=== PATIENT | female | born 1995 | race Caucasian/White ===

== ENCOUNTER → 2016-05-26 | Outpatient (CLI) | payer OTHER ==
[~2016-05-26] MED LIST: BUPR8SUB19 SL; CEPH500C2 PO; GABA1CAP5 PO; ONDA4TAB46 PO; PRENTAB26 PO; ZNTT/150 PO
[2016-05-26 12:12] LABS: BASO % 0.2 %; BASO ABS # 0.02 K/uL (0-0.2); COMPLETE YES; EOS % 3.3 %; HEMATOCRIT 38.1 % (37-47); IG% 0.1 %; LYMPH % 25.8 %; LYMPH ABS # 2.34 K/uL (1.2-3.4); MEAN CELL VOLUME 79.7 fL (80-100); MEAN CORPUSCULAR HEMOGLOBIN 25.5 pg (25-34); MEAN PLATELET VOLUME 10.4 fL (7.4-10.4); MONO % 3.4 %; NEUT % 67.2 %; PLATELET COUNT 268 K/uL (130-400); RED BLOOD COUNT 4.78 M/uL (4.2-5.4); WHITE BLOOD COUNT 9.06 K/uL (4.8-10.8)
[2016-05-26 12:41] LABS: URINE APPEARANCE CLEAR (CLEAR); URINE BILIRUBIN NEG (NEG); URINE COLOR YELLOW; URINE EPITHELIAL CELL AUTO >30 /lpf (0-5); URINE NITRITE NEG (NEG); URINE PH 7.5 (4.5-7.5); UROBILINOGEN NEG (NEG)
[2016-05-26 12:45] LABS: GTGD 50 Grams
[2016-05-26 12:50] LABS: MANUAL MICROSCOPIC REQUIRED? NO; REVIEW REQ? NO
== END | disposition home or self-care (01) ==
LOC: C.LAB1850 10:39
PROVIDERS: ATTEND Obstetrics & Gynecology
DX: O09.892 Supervision of other high risk pregnancies, second trimester (principal); Z3A.00 Weeks of gestation of pregnancy not specified

== ENCOUNTER → 2016-05-26 | Outpatient (CLI) | payer OTHER ==
[2016-05-30 03:15] LABS: CHLAMYDIA TRACH RNA*** NOT DETECTED (NOT DETECTED); GC (NEIS GONORRHOEAE)RNA** NOT DETECTED (NOT DETECTED)
== END | disposition home or self-care (01) ==
LOC: C.LABSPEC 13:25
PROVIDERS: ATTEND Obstetrics & Gynecology
DX: O09.892 Supervision of other high risk pregnancies, second trimester (principal); Z3A.00 Weeks of gestation of pregnancy not specified

== ENCOUNTER 2016-06-11 23:52 | Emergency (ER) | payer OTHER ==
[~2016-06-11] VITALS: Ht 167.6 cm; Wt 94.2 kg
[~2016-06-11 23:52] MED LIST changes: -BUPR8SUB19 SL; -CEPH500C2 PO; -GABA1CAP5 PO; -ONDA4TAB46 PO; -ZNTT/150 PO
[2016-06-12 00:01] VITALS: TEMP 36.6; Ht 167.6 cm; Wt 94.2 kg
--- NOTE | 2016-06-12 00:32 | EMERGENCY ROOM VISIT NOTE ---
History Report prepared by Elayne: Vinayak Quick Under the Supervision of: Dr. Elyse Anderson D.O. First contact with patient: 00:13 Chief Complaint: VOMITING Stated Complaint: CANT KEEP ANYTHING [id number] Nursing Triage Summary: Pt reports pelvic and back pain that started a few weeks ago. Pt reports seeing OB and was instructed to see her PCP. Pt went to PCP and was instructed to see OB. Pt reports vomiting for the past few weeks and unable to keep anything down. History of Present Illness The patient is a 20 year old female who presents to the Emergency Room with complaints of persistent vomiting for the past several weeks. The patient cannot keep food or fluids down secondary to vomiting. She last ate macaroni and cheese and a hot dog. The patient has also been dry heaving. She also complains of pelvic pain for the past several days. The pain was not relieved with Tylenol. The patient denies fevers, urinary symptoms, vaginal bleeding or discharge, or leg cramping or swelling. She has seen her primary doctor and her [employer] Division Supervisor (Lucian Steven) since the onset of her symptoms. Her urine was not checked. She is 20 weeks and can feel he fetus move. The patient is on her second . P:1. The patient is taking vitamins. The first child is healthy. She did not have this pelvic pain during her first . The patient has a history of UTIs and bladder infection. She denies other medical problems. She does still smoke. She denies drug or alcohol use. She is not currently working as she takes care of her first child. She has a family history of gastroparesis. Source of History: patient Onset: several weeks ago Position: other (GI) Quality: other (vomiting) Timing: other (persistent) Associated Symptoms: + abdominal pain (pelvic), No fevers, No urinary symptoms Review of Systems See HPI for pertinent positives & negatives. A total of 10 systems reviewed and were otherwise negative. Past Medical & Surgical Medical Problems: (1) Pyelonephritis affecting (2) Third trimester (3) Uterine contractions Family History Patient reports no known family medical history. Social History Smoking Status: Current Every Day Smoker Alcohol Use: none Drug Use: none Marital Status: single Occupation Status: unemployed Current/Historical Medications Scheduled Multivit/Min/Iron/Fol Ac/Pren ( Vitamin), 1 TAB PO DAILY Allergies Coded Allergies: Amphetamine (Verified Allergy, Severe, ANAPHYLAXIS, 06/12/16) Dextroamphetamine (Verified Allergy, Severe, ANAPHYLAXIS, 06/12/16) Shrimp (Verified Allergy, Severe, ANAPHYLAXIS, 06/12/16) Prednisone (Verified Allergy, Unknown, Rash, 06/12/16) Reported by mother. Physical Exam Vital Signs Date Time Temp Pulse Resp B/P Pulse Ox O2 Delivery O2 Flow Rate FiO2 06/12/16 02:15 83 18 99/67 99 06/12/16 01:30 80 18 109/60 100 Room Air 06/12/16 00:01 36.6 82 18 132/78 100 Room Air Physical Exam HEENT: Head - normocephalic and atraumatic Pupils are equal, round, and reactive to light. Extraocular eye muscles are intact, and sclera are anicteric. Nose - moist nasal mucosa without discharge. Mouth - moist buccal mucosa. Oropharynx is nonerythematous and there is no tonsillar exudate or edema noted. Neck: Supple; no JVD, nuchal rigidity, cervical lymphadenopathy. Heart: Regular rate and rhythm. There is a normal S1 and S2 with no murmurs, clicks, or gallops appreciated. Lungs: Clear to auscultation bilaterally with no wheezes, rales, or rhonchi. Abdomen: Soft, completely nontender, nondistended, with good bowel sounds. There are no palpable pulsatile masses or hepatosplenomegaly. There is no guarding, rigidity, or rebound noted. Extremities: No evidence of cyanosis, clubbing, or edema. There are easily palpable peripheral pulses. Skin: warm and dry with good turgor and no rashes. Medical Decision & Procedures Laboratory Results 06/12/16 00:45 Red Blood Count 4.39, Mean Corpuscular Volume 79.7, Mean Corpuscular Hemoglobin 27.3, Mean Corpuscular Hemoglobin Concent 34.3, Mean Platelet Volume 10.2, Neutrophils (%) (Auto) 63.3, Lymphocytes (%) (Auto) 29.2, Monocytes (%) (Auto) 3.4, Eosinophils (%) (Auto) 3.7, Basophils (%) (Auto) 0.2, Neutrophils # (Auto) 6.49, Lymphocytes # (Auto) 3.00, Monocytes # (Auto) 0.35, Eosinophils # (Auto) 0.38, Basophils # (Auto) 0.02 06/12/16 00:45 Test 06/12/16 00:15 06/12/16 00:45 Urine Color YELLOW Urine Appearance TURBID (CLEAR) Urine pH 8.5 (4.5-7.5) Urine Specific [place] 1.020 (1.000-1.030) Urine Protein NEG (NEG) Urine Glucose (UA) NEG (NEG) Urine Ketones NEG (NEG) Urine Occult Blood NEG (NEG) Urine Nitrite NEG (NEG) Urine Bilirubin NEG (NEG) Urine Urobilinogen NEG (NEG) Urine Leukocyte Esterase MODERATE (NEG) Urine WBC (Auto) 10-30 /hpf (0-5) Urine RBC (Auto) 0-4 /hpf (0-4) Urine Hyaline Casts (Auto) 5-10 /lpf (0-5) Urine Epithelial Cells (Auto) >30 /lpf (0-5) Urine Bacteria (Auto) 1+ (NEG) White Blood Count 10.26 K/uL (4.8-10.8) Red Blood Count 4.39 M/uL (4.2-5.4) Hemoglobin 12.0 g/dL (12.0-16.0) Hematocrit 35.0 % (37-47) Mean Corpuscular Volume 79.7 fL (80-100) Mean Corpuscular Hemoglobin 27.3 pg (25-34) Mean Corpuscular Hemoglobin Concent 34.3 g/dl (32-36) Platelet Count 221 K/uL (130-400) Mean Platelet Volume 10.2 fL (7.4-10.4) Neutrophils (%) (Auto) 63.3 % Lymphocytes (%) (Auto) 29.2 % Monocytes (%) (Auto) 3.4 % Eosinophils (%) (Auto) 3.7 % Basophils (%) (Auto) 0.2 % Neutrophils # (Auto) 6.49 K/uL (1.4-6.5) Lymphocytes # (Auto) 3.00 K/uL (1.2-3.4) Monocytes # (Auto) 0.35 K/uL (0.11-0.59) Eosinophils # (Auto) 0.38 K/uL (0-0.5) Basophils # (Auto) 0.02 K/uL (0-0.2) RDW Standard Deviation 50.2 fL (36.4-46.3) RDW Coefficient of Variation 17.0 % (11.5-14.5) Immature Granulocyte % (Auto) 0.2 % Immature Granulocyte # (Auto) 0.02 K/uL (0.00-0.02) Anion Gap 5.0 mmol/L (3-11) Est Creatinine Clear Calc Drug Dose 166.1 ml/min Estimated GFR () > 150.0 Estimated GFR (Non- 130.0 BUN/Creatinine Ratio 12.1 (10-20) Calcium Level 8.9 mg/dl (8.5-10.1) Total Bilirubin 0.3 mg/dl (0.2-1) Direct Bilirubin < 0.1 mg/dl (0-0.2) Aspartate Amino Transf (AST/SGOT) 25 U/L (15-37) Alanine Aminotransferase (ALT/SGPT) 41 U/L (12-78) Alkaline Phosphatase 88 U/L (45-117) Total Protein 7.0 gm/dl (6.4-8.2) Albumin 3.0 gm/dl (3.4-5.0) Lipase 129 U/L (73-393) Acetaminophen Level < 2 ug/ml (10-30) Laboratory results per my review. Medications Administered Medications (Trade) Dose Ordered Sig/Lucho Route Start Time Stop Time Status Last Admin Dose Admin Sodium Chloride 1,000 ml @ 999 mls/hr Q1H1M STAT IV 06/12/16 00:33 06/12/16 01:33 DC 06/12/16 00:55 999 MLS/HR Sodium Chloride (Nss 1000ml) 1,000 ml @ 250 mls/hr Q4H STAT IV 06/12/16 00:33 06/12/16 02:37 DC 06/12/16 00:55 250 MLS/HR Ondansetron HCl (Zofran Inj) 4 mg NOW STAT IV 06/12/16 00:35 06/12/16 00:36 DC 06/12/16 00:55 4 MG Procedure Medications administered include NSS IV, Zofran IV. ED Course 0014: Past medical records reviewed. The patient was evaluated in room B2. A complete history and physical exam was performed. An IV lock was initiated and labs were drawn as above. 0033: NSS 1000 ml @ 250 mls/hr, NSS 1000 ml @ 999 mls/hr. 0035: Zofran 4 mg IV. 0113: The patient clarified that she had the macaroni & cheese at 2200 on Satur night (06/10) and vomited it up midnight yesterday (06/11). 0147: The patient is feeling okay. I double checked that she has not had any fevers or urinary symptoms. Her urine will be sent for culture. She was able to drink liquids without any difficulty. Medical Decision The patient is a 20 year old female who presents to the ED with vomiting and pelvic pain. Differential diagnosis includes HELLP syndrome, dehydration, round ligament pain, Tylenol overdose, UTI, pyelonephritis, hyperemesis. Laboratory interpretation: No leukocytosis, stable H&H, normal LFTs and lipase, normal renal function and glucose, acetaminophen is less than 2. Urine appears infected with moderate leukocyte esterase, 10-30 white blood cells, 1+ bacteria , and negative nitrate. This is a 20-year-old female patient who presents to the emergency department with vomiting and low back pain. The patient has a history of previous kidney infections and hospitalization during her previous . The patient is afebrile has no leukocytosis. Urinalysis was contaminated. It will be sent for culture. She has no urinary symptoms at this time. We spent some time talking about gastroparesis and GERD as the patient's mother was recently diagnosed with gastroparesis. Since the patient vomited up food from 24 hours earlier, the possibility of gastroparesis is there. I've encouraged the patient to follow-up with her PCP to discuss this and refer to GI. The patient may need to take Reglan regularly. She was encouraged to avoid large meals and to take 4-5 small meals per day. I also suggested the patient close follow-up with OB. Impression Primary Impression: Vomiting Additional Impression: Second trimester Scribe Attestation The scribe's documentation has been prepared under my direction and personally reviewed by me in its entirety. I confirm that the note above accurately reflects all work, treatment, procedures, and medical decision making performed by me. Departure Information Dispostion Home / Self-Care Referrals No Doctor, Assigned (PCP) Forms HOME CARE DOCUMENTATION FORM, IMPORTANT VISIT INFORMATION Patient Instructions My [facility], Vomiting - [facility] Additional Instructions Rest Take a bland diet. Eat 4-5 small meals a day. take plenty of clear liquids Follow up with PCP for eval of gastroparesis and use of reglan Call back to the ER [phone] for urine culture result Problem Qualifiers
[2016-06-12] MEDS ORDERED: SODIUM CHLORIDE 0.9% 1000ML 1,000 ML IV STA ×2 (00:33)
[2016-06-12] MEDS ORDERED: ONDANSETRON INJ 2 MG/ML 2 ML VIAL IV STA (00:35)
[2016-06-12 01:00] LABS: BASO % 0.2 %; BASO ABS # 0.02 K/uL (0-0.2); COMPLETE YES; EOS % 3.7 %; IG% 0.2 %; LYMPH % 29.2 %; MEAN CELL VOLUME 79.7 fL (80-100); MEAN CORPUSCULAR HEMOGLOBIN 27.3 pg (25-34); MEAN CORPUSCULAR HGB CONC 34.3 g/dl (32-36); MEAN PLATELET VOLUME 10.2 fL (7.4-10.4); MONO % 3.4 %; NEUT % 63.3 %; PLATELET COUNT 221 K/uL (130-400); RED BLOOD COUNT 4.39 M/uL (4.2-5.4); WHITE BLOOD COUNT 10.26 K/uL (4.8-10.8)
[2016-06-12 01:08] LABS: URINE APPEARANCE TURBID (CLEAR); URINE BILIRUBIN NEG (NEG); URINE COLOR YELLOW; URINE EPITHELIAL CELL AUTO >30 /lpf (0-5); URINE NITRITE NEG (NEG); URINE PH 8.5 (4.5-7.5); UROBILINOGEN NEG (NEG)
[2016-06-12 01:17] LABS: MANUAL MICROSCOPIC REQUIRED? NO; REVIEW REQ? NO
[2016-06-12 01:22] LABS: ALT/SGPT 41 U/L (12-78); AST/SGOT 25 U/L (15-37); BLOOD UREA NITROGEN 8 mg/dl (7-18); BUN/CREATININE RATIO 12.1 (10-20); CALCIUM 8.9 mg/dl (8.5-10.1); CARBON DIOXIDE 29 mmol/L (21-32); CHLORIDE 107 mmol/L (98-107); CREATININE 0.63 mg/dl (0.60-1.20); GLUCOSE 97 mg/dl (70-99); POTASSIUM 3.7 mmol/L (3.5-5.1); SODIUM 141 mmol/L (136-145)
[2016-06-12 01:25] LABS: ALKALINE PHOSPHATASE 88 U/L (45-117)
[2016-06-12 02:15] VITALS: BP 99/67; PULSE 83; O2SAT 99
--- NOTE | 2016-06-14 16:27 | Pharmacy Progress Note ---
ED Pharmacist Culture FollowUp Date of Service: Jun 14, 2016. 20 yo female, 20 wks , with Gardnerella isolated from urine culture. Denied urinary symptoms. UA with significant epithelial cells. Likely contaminant, no treatment required at this time. However, as patient is , called [facility] to notify of result. Was transferred to voicemail therefore left a voicemail message notifying of result and intent not to treat. Did not fax results as they should have electronic access to our records. Provided ED phone number for follow-up questions.
--- NOTE | 2016-06-20 16:33 | Pharmacy Progress Note ---
ED Pharmacist Progress Note Date of Service: Jun 20, 2016. Patient called today to ask about results of urine cx from 06/12. Gardnerella- like bacilli were reported on the urine cx. Explained that the culture grew an organism that is part of normal vaginal nikolas in many patients and would not usually be associated with a UTI. The UA appears to be contaminated as well given the number of epis present (>30 epis). The patient states she does not have urinary symptoms. No action was required when the results were initially interpreted. The results of this cx had also be given to the patient's OBGYN by pharmacist when the cx originally resulted.
[2016-09-10] MEDS ORDERED: CEPH500C2 PO ×2 (18:04)
== END 2016-06-12 02:16 | disposition home or self-care (01) ==
LOC: C.EDB 06-12 00:01
DX: O21.9 Vomiting of pregnancy, unspecified (principal); O99.332 Smoking (tobacco) complicating pregnancy, second trimester; Z3A.20 20 weeks gestation of pregnancy; F17.200 Nicotine dependence, unspecified, uncomplicated

== ENCOUNTER → 2016-08-02 | Outpatient (CLI) | payer OTHER ==
[~2016-08-02] MED LIST changes: +BUPR8SUB19 SL; +CEPH500C2 PO; +GABA1CAP5 PO; +ONDA4TAB46 PO; +ZNTT/150 PO
[2016-08-02 11:50] LABS: URINE APPEARANCE CLEAR (CLEAR); URINE BILIRUBIN NEG (NEG); URINE COLOR DK YELLOW; URINE EPITHELIAL CELL AUTO >30 /lpf (0-5); URINE NITRITE NEG (NEG); URINE PH 6.5 (4.5-7.5); URINE SPECIFIC GRAVITY 1.016 (1.000-1.030); UROBILINOGEN NEG (NEG)
[2016-08-02 11:54] LABS: MANUAL MICROSCOPIC REQUIRED? NO; REVIEW REQ? NO
[2016-08-02 12:08] LABS: HEMATOCRIT 33.9 % (37-47)
[2016-08-02 13:20] LABS: GTGD 50 Grams
== END | disposition home or self-care (01) ==
LOC: C.LAB1850 09:48
PROVIDERS: ATTEND Obstetrics & Gynecology
DX: O09.893 Supervision of other high risk pregnancies, third trimester (principal)

== ENCOUNTER → 2016-08-24 | Outpatient (CLI) | payer OTHER ==
[2016-08-24 14:27] LABS: URINE APPEARANCE CLOUDY (CLEAR); URINE COLOR ORANGE; URINE EPITHELIAL CELL AUTO >30 /lpf (0-5); URINE NITRITE POS (NEG); URINE PH 6.5 (4.5-7.5); URINE SPECIFIC GRAVITY 1.039 (1.000-1.030); UROBILINOGEN NEG (NEG)
[2016-08-24 14:59] LABS: MANUAL MICROSCOPIC REQUIRED? NO; REVIEW REQ? YES; URINE BILIRUBIN NEG (NEG)
[2016-08-24 15:07] LABS: URINE MUCUS PRESENT (NONE PRSENT)
== END | disposition home or self-care (01) ==
LOC: C.LABSPEC 14:39
PROVIDERS: ATTEND Obstetrics & Gynecology
DX: R39.15 Urgency of urination (principal)

== ENCOUNTER 2016-09-09 17:17 | Inpatient (IN) | payer OTHER ==
[~2016-09-09] VITALS: Ht 167.6 cm; Wt 90.0 kg
[~2016-09-09 17:17] MED LIST changes: -BUPR8SUB19 SL; -CEPH500C2 PO; -GABA1CAP5 PO; -ONDA4TAB46 PO; -ZNTT/150 PO
[2016-09-09 18:18] LABS: URINE APPEARANCE CLOUDY (CLEAR); URINE COLOR ORANGE; URINE EPITHELIAL CELL AUTO >30 /lpf (0-5); URINE NITRITE POS (NEG); URINE PH 6.5 (4.5-7.5); URINE SPECIFIC GRAVITY 1.023 (1.000-1.030); UROBILINOGEN NEG (NEG)
[2016-09-09 18:44] LABS: MANUAL MICROSCOPIC REQUIRED? NO; REVIEW REQ? YES
[2016-09-09 18:47] LABS: URINE BILIRUBIN NEG (NEG)
[2016-09-09 19:05] LABS: HEMATOCRIT 33.2 % (37-47); MEAN CORPUSCULAR HEMOGLOBIN 26.1 pg (25-34); PLATELET COUNT 255 K/uL (130-400); WHITE BLOOD COUNT 13.57 K/uL (4.8-10.8)
[2016-09-09 19:11] VITALS: BMI 33.0
[2016-09-09] MEDS ORDERED: ONDA4TAB46 PO (19:19)
[2016-09-09] MEDS ORDERED: GABA1CAP5 PO (19:19)
[2016-09-09] MEDS: LACTATED RINGER'S 1000ML 1,000 ML IV SCH (19:27)
[2016-09-09] MEDS: MoRPHine SULFATE 4 MG/ML 1 ML CARP\\VIAL IV PRN ×2 (19:28→23:08)
[2016-09-09 19:45] LABS: ALB/GLOB RATIO 0.6 (0.9-2); ALKALINE PHOSPHATASE 193 U/L (45-117); ALT/SGPT 84 U/L (12-78); AST/SGOT 117 U/L (15-37); BLOOD UREA NITROGEN 7 mg/dl (7-18); CALCIUM 8.7 mg/dl (8.5-10.1); CARBON DIOXIDE 25 mmol/L (21-32); CHLORIDE 107 mmol/L (98-107); GLUCOSE 93 mg/dl (70-99); POTASSIUM 3.5 mmol/L (3.5-5.1); SODIUM 137 mmol/L (136-145)
[2016-09-09 19:46] LABS: MEAN CORPUSCULAR HGB CONC 32.2 g/dl (32-36)
[2016-09-09] MEDS ORDERED: CEFTRIAXONE SOD INJ 1 GM in DEXTROSE 5% ADD-VANTAGE 50ML 50 ML IV ONE (20:00)
[2016-09-10] MEDS: LACTATED RINGER'S 1000ML 1,000 ML IV SCH ×2 (03:46→12:05)
[2016-09-10] MEDS: MoRPHine SULFATE 4 MG/ML 1 ML CARP\\VIAL IV PRN ×4 (03:54→17:34)
[2016-09-10 06:24] LABS: BASO % 0.2 %; BASO ABS # 0.02 K/uL (0-0.2); COMPLETE YES; EOS % 2.3 %; HEMATOCRIT 31.3 % (37-47); IG% 0.3 %; LYMPH ABS # 3.09 K/uL (1.2-3.4); MEAN CELL VOLUME 81.9 fL (80-100); MEAN CORPUSCULAR HEMOGLOBIN 25.9 pg (25-34); MEAN CORPUSCULAR HGB CONC 31.6 g/dl (32-36); MEAN PLATELET VOLUME 10.1 fL (7.4-10.4); MONO % 9.6 %; NEUT % 62.6 %; PLATELET COUNT 263 K/uL (130-400); RED BLOOD COUNT 3.82 M/uL (4.2-5.4); WHITE BLOOD COUNT 12.35 K/uL (4.8-10.8)
[2016-09-10 07:00] LABS: ALT/SGPT 66 U/L (12-78); BLOOD UREA NITROGEN 5 mg/dl (7-18); BUN/CREATININE RATIO 8.7 (10-20); CALCIUM 8.2 mg/dl (8.5-10.1); CARBON DIOXIDE 24 mmol/L (21-32); CHLORIDE 106 mmol/L (98-107); CREATININE 0.52 mg/dl (0.60-1.20); GLUCOSE 82 mg/dl (70-99); POTASSIUM 3.8 mmol/L (3.5-5.1); SODIUM 139 mmol/L (136-145)
[2016-09-10 07:03] LABS: ALB/GLOB RATIO 0.5 (0.9-2); ALKALINE PHOSPHATASE 171 U/L (45-117); AST/SGOT 84 U/L (15-37)
--- NOTE | 2016-09-10 09:03 | OB/GYN Progress Note ---
[employer] Progress Note Date of Service Sep 10, 2016. Subjective conversation w/ patient, physical exam Ambulation: ambulating normally Passing Gas: Yes Diet Tolerance: Regular Diet Notes: Urinating much better today - more volume, able to void more than a few drops at a time. Not painful now. Review of Systems Constitutional: No fever, No chills, No sweats, No problem reported Respiratory: + cough, No shortness of breath, No dyspnea at rest Cardiac: No problem reported Breast: No problem reported Abdomen: No problem reported Female : No problem reported + movement. No vaginal bleeding. No contractions. No leaking of fluid. Objective Physical Exam General Appearance: WELL-APPEARING, NO APPARENT DISTRESS Respiratory/Chest: + pertinent finding (after coughing, lungs sound much improved.) Cardiovascular: regular rate, rhythm Abdomen: non tender, soft, + tenderness, + pertinent finding (No CVAT) Extremities: normal inspection Gravid uterus, nontender to palpation. Laboratory Results Last 24 Hours Test 09/09/16 17:54 09/09/16 18:50 09/10/16 05:43 Urine Color ORANGE Urine Appearance CLOUDY Urine pH 6.5 Urine Specific [place] 1.023 Urine Protein 1+ Urine Glucose (UA) NEG Urine Ketones 4+ Urine Occult Blood NEG Urine Nitrite POS Urine Bilirubin NEG Urine Urobilinogen NEG Urine Leukocyte Esterase MODERATE Urine WBC (Auto) >30 /hpf Urine RBC (Auto) 0-4 /hpf Urine Hyaline Casts (Auto) 0 /lpf Urine Epithelial Cells (Auto) >30 /lpf Urine Bacteria (Auto) 4+ Urine Pathogenic Casts /lpf White Blood Count 13.57 K/uL 12.35 K/uL Red Blood Count 4.10 M/uL 3.82 M/uL Hemoglobin 10.7 g/dL 9.9 g/dL Hematocrit 33.2 % 31.3 % Mean Corpuscular Volume 81.0 fL 81.9 fL Mean Corpuscular Hemoglobin 26.1 pg 25.9 pg Mean Corpuscular Hemoglobin Concent 32.2 g/dl 31.6 g/dl RDW Standard Deviation 43.7 fL 44.7 fL RDW Coefficient of Variation 14.8 % 15.0 % Platelet Count 255 K/uL 263 K/uL Mean Platelet Volume 10.0 fL 10.1 fL Sodium Level 137 mmol/L 139 mmol/L Potassium Level 3.5 mmol/L 3.8 mmol/L Chloride Level 107 mmol/L 106 mmol/L Carbon Dioxide Level 25 mmol/L 24 mmol/L Anion Gap 5.0 mmol/L 9.0 mmol/L Blood Urea Nitrogen 7 mg/dl 5 mg/dl Creatinine 0.50 mg/dl 0.52 mg/dl Est Creatinine Clear Calc Drug Dose 200.6 ml/min 192.8 ml/min Estimated GFR () > 150.0 > 150.0 Estimated GFR (Non- 140.3 138.5 BUN/Creatinine Ratio 13.0 8.7 Random Glucose 93 mg/dl 82 mg/dl Calcium Level 8.7 mg/dl 8.2 mg/dl Total Bilirubin 1.0 mg/dl 0.5 mg/dl Aspartate Amino Transf (AST/SGOT) 117 U/L 84 U/L Alanine Aminotransferase (ALT/SGPT) 84 U/L 66 U/L Alkaline Phosphatase 193 U/L 171 U/L Total Protein 6.3 gm/dl 5.7 gm/dl Albumin 2.3 gm/dl 2.0 gm/dl Globulin 4.0 gm/dl 3.7 gm/dl Albumin/Globulin Ratio 0.6 0.5 Neutrophils (%) (Auto) 62.6 % Lymphocytes (%) (Auto) 25.0 % Monocytes (%) (Auto) 9.6 % Eosinophils (%) (Auto) 2.3 % Basophils (%) (Auto) 0.2 % Neutrophils # (Auto) 7.74 K/uL Lymphocytes # (Auto) 3.09 K/uL Monocytes # (Auto) 1.18 K/uL Eosinophils # (Auto) 0.28 K/uL Basophils # (Auto) 0.02 K/uL Immature Granulocyte % (Auto) 0.3 % Immature Granulocyte # (Auto) 0.04 K/uL Assessment and Plan Continue Routine Care: Hospital Day 2 - treatment for pyelonephritis Patient has been afebrile since admission. Symptomatically, she is improving. LFTs have also improved over yesterday - supports the assumption that elevated LFTs were caused by large doses of tylenol. Will continue to monitor patient throughout the day today, plan to give 2nd dose of Rocephin this evening at 7pm. If patient continues to do well, will plan to discharge to home this evening with Rx for PO keflex.
[2016-09-10] MEDS ORDERED: LIDOCAINE HCL 2% JELLY 30 ML TUBE EXT ONE (10:17)
--- NOTE | 2016-09-10 10:54 | Progress Note ---
Progress Note Date of Service Sep 10, 2016. Progress Note Patient complained of a draining boil at the upper end of buttocks. This is approx 1cm, actively draining purulent malodorous pus. She has apparently had these in the past, and has had them incised & drained in the past. Today, since it was already draining, I expressed the wound and packed with approx 2cm gauze. Since she is already going to be discharged with antibiotics for pyelo, will likely be covered by same abx. Additionally, since patient's cough has continued - bilateral ronchi auscultated , mostly clears with coughing, to rule out pneumonia/bronchitis will consult hospitalist service for further evaluation. Chest x-ray ordered. I discussed x- ray and implications for with patient, and she is agreeable for chest x-ray.
--- NOTE | 2016-09-10 11:55 | DIAGNOSTIC IMAGING REPORT ---
TWO VIEW CHEST CLINICAL HISTORY: Bilateral rhonchi on physical examination. . FINDINGS: PA and lateral chest radiographs are compared to study dated 03/02/2014. The cardiomediastinal silhouette is unremarkable. The lungs and pleural spaces are clear. There is no pneumothorax. The bony thorax appears intact. Indeterminate densities project over the lung apices and are likely external to patient. IMPRESSION: No active disease in the chest. Electronically signed by: Monty Clark M.D. 09/10/2016 11:54 AM Dictated Date/Time: 09/10/2016 11:53 AM
[2016-09-10] MEDS ORDERED: GUAIFENESIN SUGAR FREE 100 MG/5 ML UDC PO PRN (12:15)
[2016-09-10 12:56] VITALS: Ht 167.6 cm; Wt 90.0 kg
--- NOTE | 2016-09-10 13:05 | Medical Consult ---
Consultation Date of Consultation: Sep 10, 2016. Attending Physician: Yoon Toro D.O. History of Present Illness Patient is a 20 yo female who is approximately 33 weeks gestation who presented to the hospital for complaints of flank pain and was found to have a UTI and pyelonephritis; she also reports having a productive cough that began approximately 3 weeks ago with cold-like symptoms including sinus congestion and pressure and this same cough. She denies any sore throat or ear pain. She states she has given this same cough to her 9 month old child and to her mother as well. No fevers, chills, sweats, or rigors. Patient reports she is smoking despite being and has no intention of stopping. Past Medical/Surgical History Medical Problems: (1) Hydronephrosis Status: Acute (2) Leukocytosis Status: Acute (3) Protein in urine Status: Acute (4) Right flank pain Status: Acute (5) Second trimester Status: Acute (6) Transaminitis Status: Acute (7) UTI (urinary tract infection) Status: Acute (8) Vomiting Status: Acute Family History Patient reports no known family medical history. Social History Smoking Status: Current Every Day Smoker Drug Use: none Marital Status: single Occupation Status: unemployed Allergies Coded Allergies: Amphetamine (Verified Allergy, Severe, ANAPHYLAXIS, 09/10/16) Dextroamphetamine (Verified Allergy, Severe, ANAPHYLAXIS, 09/10/16) Shellfish (Verified Allergy, Severe, ANAPHYLAXIS, 09/10/16) Shrimp (Verified Allergy, Severe, ANAPHYLAXIS, 09/10/16) Prednisone (Verified Allergy, Unknown, Rash, 09/10/16) Reported by mother. Current Inpatient Medications Current Inpatient Medications Medications (Trade) Dose Ordered Sig/Lucho Route Start Time Stop Time Status Last Admin Dose Admin Morphine Sulfate (MoRPHine SULFATE INJ) 4 mg Q4 PRN IV 09/09/16 18:45 09/23/16 18:44 09/10/16 12:23 4 MG Lactated Ringer's 1,000 ml @ 125 mls/hr Q8H IV 09/09/16 18:43 09/11/16 18:42 09/10/16 12:05 125 MLS/HR Ceftriaxone Sodium 1 gm/ Dextrose 50 ml @ 100 mls/hr TODAY@1900 IV 09/10/16 19:00 09/10/16 19:29 Guaifenesin (Robitussin Sugar Free Syrup) 100 mg Q6H PRN PO 09/10/16 12:15 10/10/16 12:14 Review of Systems Constitutional: No fever, No chills, No sweats, No weakness Eyes: No eye pain, No redness, No diplopia ENT: No nasal symptoms, No sore throat, No tinnitus, No trouble swallowing Respiratory: + cough, + sputum, No wheezing, No shortness of breath, No hemoptysis Cardiovascular: + edema, No chest pain, No claudication, No palpitations Abdomen: No pain, No nausea, No vomiting, No diarrhea Genitourinary - Female: + dysuria, + urinary frequency, + , No vaginal bleeding Neurologic: No numbness/tingling, No vertigo, No balance problems, No problem reported Psychiatric: No problem reported Endocrine: No problem reported Hematologic / Lymphatic: No problem reported Integumentary: No problem reported Physical Exam General Appearance: WD/WN, no apparent distress Head: normocephalic, atraumatic Eyes: PERRL, EOMI, sclerae normal ENT: hearing grossly normal, pharynx normal Neck: supple, no JVD, no carotid bruits, trachea midline Respiratory/Chest: chest non-tender, no respiratory distress, no accessory muscle use, + rhonchi Cardiovascular: regular rate, rhythm, no gallop, no JVD, no murmur, normal peripheral pulses Abdomen/GI: normal bowel sounds, non tender, soft, no organomegaly (other than having a abdomen) Back: no CVA tenderness, no muscle spasm, normal range of motion Extremities/Musculoskelatal: no calf tenderness, normal capillary refill Neurologic/Psych: no motor/sensory deficits, alert, normal mood/affect, oriented x 3 Skin: normal color, warm/dry, no rash Laboratory Results Last 24 Hours Test 09/09/16 17:54 09/09/16 18:50 09/10/16 05:43 Urine Color ORANGE Urine Appearance CLOUDY Urine pH 6.5 Urine Specific [place] 1.023 Urine Protein 1+ Urine Glucose (UA) NEG Urine Ketones 4+ Urine Occult Blood NEG Urine Nitrite POS Urine Bilirubin NEG Urine Urobilinogen NEG Urine Leukocyte Esterase MODERATE Urine WBC (Auto) >30 /hpf Urine RBC (Auto) 0-4 /hpf Urine Hyaline Casts (Auto) 0 /lpf Urine Epithelial Cells (Auto) >30 /lpf Urine Bacteria (Auto) 4+ Urine Pathogenic Casts /lpf White Blood Count 13.57 K/uL 12.35 K/uL Red Blood Count 4.10 M/uL 3.82 M/uL Hemoglobin 10.7 g/dL 9.9 g/dL Hematocrit 33.2 % 31.3 % Mean Corpuscular Volume 81.0 fL 81.9 fL Mean Corpuscular Hemoglobin 26.1 pg 25.9 pg Mean Corpuscular Hemoglobin Concent 32.2 g/dl 31.6 g/dl RDW Standard Deviation 43.7 fL 44.7 fL RDW Coefficient of Variation 14.8 % 15.0 % Platelet Count 255 K/uL 263 K/uL Mean Platelet Volume 10.0 fL 10.1 fL Sodium Level 137 mmol/L 139 mmol/L Potassium Level 3.5 mmol/L 3.8 mmol/L Chloride Level 107 mmol/L 106 mmol/L Carbon Dioxide Level 25 mmol/L 24 mmol/L Anion Gap 5.0 mmol/L 9.0 mmol/L Blood Urea Nitrogen 7 mg/dl 5 mg/dl Creatinine 0.50 mg/dl 0.52 mg/dl Est Creatinine Clear Calc Drug Dose 200.6 ml/min 192.8 ml/min Estimated GFR () > 150.0 > 150.0 Estimated GFR (Non- 140.3 138.5 BUN/Creatinine Ratio 13.0 8.7 Random Glucose 93 mg/dl 82 mg/dl Calcium Level 8.7 mg/dl 8.2 mg/dl Total Bilirubin 1.0 mg/dl 0.5 mg/dl Aspartate Amino Transf (AST/SGOT) 117 U/L 84 U/L Alanine Aminotransferase (ALT/SGPT) 84 U/L 66 U/L Alkaline Phosphatase 193 U/L 171 U/L Total Protein 6.3 gm/dl 5.7 gm/dl Albumin 2.3 gm/dl 2.0 gm/dl Globulin 4.0 gm/dl 3.7 gm/dl Albumin/Globulin Ratio 0.6 0.5 Neutrophils (%) (Auto) 62.6 % Lymphocytes (%) (Auto) 25.0 % Monocytes (%) (Auto) 9.6 % Eosinophils (%) (Auto) 2.3 % Basophils (%) (Auto) 0.2 % Neutrophils # (Auto) 7.74 K/uL Lymphocytes # (Auto) 3.09 K/uL Monocytes # (Auto) 1.18 K/uL Eosinophils # (Auto) 0.28 K/uL Basophils # (Auto) 0.02 K/uL Immature Granulocyte % (Auto) 0.3 % Immature Granulocyte # (Auto) 0.04 K/uL Assessment & Plan UTI: -on ceftriaxone -urine culture grew pansensitive E coli -patient also to have keflex for pyelo prophylaxis for remainder of her -patient with leukocytosis, but afebrile and no tachycardia or tachypnea -can obtain Renal US to confirm BRONCHITIS: -CXR was clear, no infiltrates or opacities -sputum culture -no wheezing/chest tightness or SOB, does not require steroids or albuterol at this time -most likely viral etiology given length of illness without significant worsening -stressed to the patient the need for smoking cessation -supportive care with cough suppression/guaifenesin if ok with OB -additional antibiotic not required as patient is already being treated appropriately for UTI BUTTOCK ABSCESS: -s/p I&D -patient to be placed on keflex for treatment ELEVATED LFT's: -trending down, to be followed as outpatient
--- NOTE | 2016-09-10 18:03 | Progress Note ---
Progress Note Date of Service Sep 10, 2016. Progress Note Patient has improved symptomatically. Remains afebrile. Will give 2nd dose of rocephin and then discharge to home. Will discharge with Rx for Keflex 500mg 4x daily x 7 days, followed by 500mg daily for the remainder of for prophylaxis of pyelonephritis. Patient is to followup within the week in the office for recheck of packing of boil. Also needs to followup outpatient with internal medicine for cough. I discussed antibiotic treatment with hospitalist , who agrees that Keflex will cover URI symptoms as well.
[2016-09-10] MEDS ORDERED: CEPH500C2 PO ×2 (18:04)
--- NOTE | 2016-09-10 18:06 | Discharge Instructions ---
Discharge Instructions Date of Service Sep 10, 2016. Admission Reason for Admission: Check Uti Discharge Discharge Diagnosis / Problem: pyelonephritis Discharge Goals Goal(s): Continuing OB care Activity Recommendations Activity Limitations: per Instructions/Follow-up section . Instructions / Follow-Up Instructions / Follow-Up SPECIAL CARE INSTRUCTIONS: Call Doctor if: * Regular contractions every 5 minutes or greater than 5 contractions in one hour. * Bleeding * Water breaks or is leaking * Decreased movement * Fever >100.4 degrees F * Pain not relieved by routine measures or pain medication ordered. FOLLOW UP VISIT: Office this week Current Hospital Diet Patient's current hospital diet: Regular OB Diet Discharge Diet Recommended Diet: Regular OB Diet Pending Studies Studies pending at discharge: yes List of pending studies: wound culture, sputum culture, urine culture Medical Emergencies . Who to Call and When: Medical Emergencies: If at any time you feel your situation is an emergency, please call 911 immediately. . Non-Emergent Contact Non-Emergency issues call your: Primary Care Provider, Metal Fabricating Supervisor . . "Provider Documentation" section prepared by Yoon Toro. . VTE Core Measure Inpt VTE Proph given/why not?: Treatment not indicated
[2016-09-10] MEDS ORDERED: CEFTRIAXONE SOD INJ 1 GM in DEXTROSE 5% ADD-VANTAGE 50ML 50 ML IV SCH (19:00)
== END 2016-09-10 19:25 | disposition home or self-care (01) | DRG 781 ==
LOC: C.LD 17:17 → C.OPB 17:17 → C.LD 19:00
PROVIDERS: ADMIT Obstetrics & Gynecology; ATTEND Obstetrics & Gynecology
DX: O23.43 Unspecified infection of urinary tract in pregnancy, third trimester (principal); O99.333 Smoking (tobacco) complicating pregnancy, third trimester; O99.513 Diseases of the respiratory system complicating pregnancy, third trimester; O99.713 Diseases of the skin and subcutaneous tissue complicating pregnancy, third trimester; L02.31 Cutaneous abscess of buttock; Z3A.33 33 weeks gestation of pregnancy; J40 Bronchitis, not specified as acute or chronic; R79.89 Other specified abnormal findings of blood chemistry; F17.210 Nicotine dependence, cigarettes, uncomplicated

== ENCOUNTER → 2016-09-19 | Outpatient (CLI) | payer OTHER ==
[~2016-09-19] MED LIST changes: +BUPR8SUB19 SL; +CEPH500C2 PO; +GABA1CAP5 PO; +ONDA4TAB46 PO; +ZNTT/150 PO
[2016-09-19 16:35] LABS: BENZODIAZEPINE, URINE NEG (NEG); COCAINE,URINE NEG (NEG); PHENCYCLIDINE, URINE NEG (NEG)
== END | disposition home or self-care (01) ==
LOC: C.LABSPEC 15:51
PROVIDERS: ATTEND Obstetrics & Gynecology
DX: O09.893 Supervision of other high risk pregnancies, third trimester (principal); O26.93 Pregnancy related conditions, unspecified, third trimester

== ENCOUNTER → 2016-10-03 | Outpatient (CLI) | payer OTHER | END | disposition home or self-care (01) | LOC: C.LABSPEC 12:04 | PROVIDERS: ATTEND Obstetrics & Gynecology | DX: O09.893 Supervision of other high risk pregnancies, third trimester (principal) ==

== ENCOUNTER → 2016-10-07 | Outpatient (CLI) | payer OTHER ==
[2016-10-07 18:52] LABS: BASO % 0.2 %; BASO ABS # 0.02 K/uL (0-0.2); COMPLETE YES; EOS % 2.2 %; HEMATOCRIT 30.7 % (37-47); IG% 0.2 %; LYMPH % 27.8 %; LYMPH ABS # 2.87 K/uL (1.2-3.4); MEAN CELL VOLUME 81.2 fL (80-100); MEAN CORPUSCULAR HEMOGLOBIN 26.2 pg (25-34); MEAN CORPUSCULAR HGB CONC 32.2 g/dl (32-36); MEAN PLATELET VOLUME 10.2 fL (7.4-10.4); MONO % 5.4 %; NEUT % 64.2 %; PLATELET COUNT 241 K/uL (130-400); RED BLOOD COUNT 3.78 M/uL (4.2-5.4); WHITE BLOOD COUNT 10.32 K/uL (4.8-10.8)
[2016-10-07 19:15] LABS: URINE TOTAL PROTEIN 32.7 mg/dl (0-11.9)
[2016-10-07 19:19] LABS: ALT/SGPT 25 U/L (12-78); AST/SGOT 20 U/L (15-37); CREATININE 0.47 mg/dl (0.60-1.20); URIC ACID 3.5 mg/dl (2.6-7.2); URINE TOTAL PROTEIN CALC 163.5 mg/24 hr (0-149.1)
== END | disposition home or self-care (01) ==
LOC: C.LAB 18:20
PROVIDERS: ATTEND Obstetrics & Gynecology
DX: R03.0 Elevated blood-pressure reading, without diagnosis of hypertension (principal)

== ENCOUNTER 2016-10-31 18:02 | Outpatient (CLI) | payer OTHER ==
[~2016-10-31 18:02] MED LIST changes: -BUPR8SUB19 SL; -ZNTT/150 PO
[2016-10-31] MEDS ORDERED: ZNTT/150 PO (19:42)
[2016-10-31] MEDS ORDERED: BUPR8SUB19 SL (19:42)
== END 2016-10-31 19:53 | disposition home or self-care (01) ==
LOC: C.LD 18:02 → C.OPB 18:02
PROVIDERS: ATTEND Obstetrics & Gynecology
DX: O62.9 Abnormality of forces of labor, unspecified (principal); Z3A.40 40 weeks gestation of pregnancy

== ENCOUNTER 2016-11-01 00:50 | Inpatient (IN) | payer OTHER ==
[~2016-11-01] VITALS: Ht 165.1 cm; Wt 92.0 kg
[~2016-11-01 00:50] MED LIST changes: +BUPR8SUB19 SL; -CEPH500C2 PO; -GABA1CAP5 PO; -ONDA4TAB46 PO; +ZNTT/150 PO
[2016-11-01] MEDS ORDERED: BENZOCAINE 20% AER SPR 82.5 GM CAN EXT PRN (01:45)
[2016-11-01] MEDS ORDERED: OXYTOCIN INJ 10 UNITS/ML VIAL IM ONE (01:45)
[2016-11-01] MEDS ORDERED: SUPERCREAM 0.870 % 15GM JAR EXT PRN (01:45)
[2016-11-01 02:45] VITALS: Ht 165.1 cm; Wt 92.0 kg
[2016-11-01] MEDS: IBUPROFEN 600 MG TAB PO PRN ×3 (03:00→18:36)
[2016-11-01] MEDS ORDERED: OXYTOCIN 30 UNITS/500ML NSS IV ONE (03:11)
[2016-11-01] MEDS ORDERED: OXYTOCIN 30 UNITS/500ML NSS IV PRN (03:15)
[2016-11-01] MEDS: ACETAMINOPHEN 325 MG TAB PO PRN ×3 (03:28→18:36)
[2016-11-01 04:50] VITALS: BP 130/87; PULSE 71; TEMP 36.7
--- NOTE | 2016-11-01 06:50 | Progress Note ---
Subjective Nov 01, 2016. Subjective conversation w/ patient, physical exam Ambulation: ambulating normally Voiding: no voiding problems Passing Gas: Yes Diet Tolerance: Regular Diet Lochia: Small Feeding Type: Bottle Feeding Pain: controlled with tylenol & motrin Review of Systems Constitutional: No fever, No chills, No sweats, No weight loss, No weakness, No fatigue, No problem reported Breast: No see HPI, No breast lump, No change in shape, No nipple discharge, No breast pain, No problem reported Abdomen: No pain, No nausea, No vomiting, No diarrhea, No constipation, No GI bleeding, No problem reported Female : No see HPI, No dysuria, No urinary frequency, No hematuria, No incontinence, No abnormal vaginal bleeding, No vaginal discharge, No problem reported Objective Vital Signs Date Time Temp Pulse Resp B/P (MAP) Pulse Ox O2 Delivery O2 Flow Rate FiO2 11/01/16 04:50 36.7 71 16 130/87 11/01/16 04:50 Room Air Physical Exam General Appearance: WELL-APPEARING, NO APPARENT DISTRESS Abdomen: non tender, soft Fundus: Firm, Non-Tender, Relation to Umbilicus (at U) Extremities: no calf tenderness Assessment and Plan Problem List Medical Problems: (1) Hydronephrosis Status: Acute (2) Leukocytosis Status: Acute (3) Protein in urine Status: Acute (4) Right flank pain Status: Acute (5) Second trimester Status: Acute (6) Transaminitis Status: Acute (7) UTI (urinary tract infection) Status: Acute (8) Vomiting Status: Acute Day#: 1 Continue Routine Care: stable day 1/2 on subutex as written. 4mg bid continue rest of care plan
[2016-11-01 07:30] VITALS: BP 145/96; PULSE 77; TEMP 36.6; O2SAT 98
[2016-11-01 07:35] VITALS: BP 127/82
--- NOTE | 2016-11-01 07:51 | DELIVERY SUMMARY ---
DATE OF OPERATION: 11/01/2016 DATE OF DELIVERY: 11/01/2016 Patient is a 21-year-old -0-0-1 white female who presented at 40 weeks in active labor. Upon arrival to Labor and Delivery she was noted to be 8 - 9 cm dilated with bulging membranes. Membranes ruptured for a copious amount of clear fluid. She was then noted to be fully dilated. She pushed effectively over an intact perineum for delivery of a viable female infant. Mouth and nasopharynx were suctioned on the perineum. Rest of the infant delivered easily & was Placed on the mother's abdomen for further attention and warming. There was crying and the infant was moving all four limbs. The cord was clamped and cut. Cord blood was obtained. Placenta was expressed intact with a three vessel cord. The patient received IM Pitocin for control of bleeding. There is a superficial laceration of the right labia minora and of the fourchette which are not bleeding and therefore not repaired. Estimated blood loss was 200 cc. Mother and were doing well after delivery. I attest to the content of the Intraoperative Record and any orders documented therein. Any exceptions are noted below. MTDD
[2016-11-01] MEDS ORDERED: BUPRENORPHINE HCL 8 MG SUBL SL SCH (08:00)
[2016-11-01] MEDS ORDERED: PRENATAL VITAMIN TAB PO SCH (08:00)
[2016-11-01] MEDS: BUPRENORPHINE HCL 8 MG SUBL SL SCH ×2 (09:17→20:22)
[2016-11-01] MEDS: NICOTINE 21 MG/24 HR TDSY TD SCH (09:18)
[2016-11-01] MEDS: PRENATAL VITAMIN TAB PO SCH (09:18)
[2016-11-01] MEDS: FERROUS SULFATE 325 MG TAB PO SCH (09:18)
[2016-11-01 11:40] VITALS: BP 125/83; PULSE 73; TEMP 36.7
[2016-11-01 20:00] VITALS: BP 127/81; PULSE 89; TEMP 36.6
[2016-11-01 23:30] VITALS: BP 133/88; PULSE 88; TEMP 36.4
--- NOTE | 2016-11-02 07:07 | OB/GYN Progress Note ---
DISTRIBUTION SUPERINTENDENT Progress Note Date of Service Nov 02, 2016. Subjective conversation w/ patient, physical exam, chart review, lab review Ambulation: ambulating normally Voiding: no voiding problems Passing Gas: Yes Diet Tolerance: Regular Diet Lochia: Moderate Feeding Type: Bottle Feeding Review of Systems Respiratory: No shortness of breath Cardiac: No chest pain Abdomen: No nausea, No vomiting Female : No dysuria Objective Vital Signs Date Time Temp Pulse Resp B/P (MAP) Pulse Ox O2 Delivery O2 Flow Rate FiO2 11/01/16 23:30 Room Air 11/01/16 23:30 36.4 88 18 133/88 11/01/16 20:00 36.6 89 16 127/81 11/01/16 16:00 Room Air 11/01/16 11:40 36.7 73 16 125/83 11/01/16 07:35 127/82 11/01/16 07:30 98 11/01/16 07:30 36.6 77 16 145/96 Physical Exam General Appearance: WELL-APPEARING, WD/WN, NO APPARENT DISTRESS Respiratory/Chest: lungs clear, normal breath sounds, no respiratory distress Cardiovascular: regular rate, rhythm Abdomen: normal bowel sounds Fundus: Firm, Tender (appropriately tender), Relation to Umbilicus (1 below U) Extremities: normal inspection, no calf tenderness Laboratory Results Last 24 Hours Test 11/02/16 06:36 Hemoglobin 8.1 g/dL Hematocrit 25.0 % Assessment and Plan Post- Day Number: 1 Continue Routine Care: Pt is doing well clinically. - VS reviewed and WNL. - Hgb 8.1. - Blood type O + /GBS negative - Encourage ambulation, monitor and control pain with Motrin PRN, continue regular diet, monitor lochia - Mom is bottle feeding. Continue support. - Pt was taking Subutex during . PGY [address] Connelly Resident Physician Supervision Note: I was present with Dr. Connelly during the history and exam. I discussed the case with the resident and agree with the findings and plan as documented in the note. Any exceptions or clarifications are listed here: wants to stay until tomorrow. routine care. bottle feeding. Documented By: Majo Fowler
--- NOTE | 2016-11-02 07:18 | Discharge Instructions ---
Discharge Instructions Date of Service Nov 02, 2016. Admission Reason for Admission: LABOR Discharge Discharge Diagnosis / Problem: Delivery Discharge Goals Goal(s): Routine recovery after delivery Medications Continue Dispensed Medications: supercream, dermaplast, tucks, lansinoh Activity Recommendations Activity Limitations: per Instructions/Follow-up section . Instructions / Follow-Up Instructions / Follow-Up ACTIVITY RECOMMENDATIONS: * Gradual return to full activity over the next 2-3 weeks. * No lifting - nothing heavier than baby over the next 2-3 weeks. * Do not engage in vigorous exercise, sexual activity or sports until cleared by your physician. * Do not drive or operate any motorized equipment until cleared by your physician. * You may shower/bathe daily. MEDICATIONS: For discomfort or pain, you may use Acetaminophen (Tylenol), Ibuprofen (Advil), or Naproxen (Aleve) following the package directions. For constipation you may use Colace following the package directions. BREAST CARE: If you are not breast feeding: * Wear a supportive bra 24 hours a day for one to two weeks. * Avoid stimulating your breasts and nipples as much as possible during the first few weeks after delivery. * When taking a shower, have the warm water hit your back, not breasts. * When your breasts feel full, apply ice packs. Usually three to four times a day helps ease the discomfort. * Take a mild pain medication (Tylenol / Motrin) when you are uncomfortable. If breast feeding: * Use breast milk to lubricate nipples. Lansinoh cream may be used for sore nipples. You do not need to remove cream prior to breast feeding. If using a different brand of cream, check the label for directions regarding removal of cream prior to nursing. * Wear a supportive bra. * If having problems with breasts or breast feeding, call a customer service and sales consultant or your health care provider. EPISIOTOMY CARE: After delivery, if you have an episiotomy (stitches), the following steps will ease discomfort and aid healing. * For the first 24 hours after delivery, place ice packs next to your episiotomy to help reduce swelling. * After the first 24 hour-period, sitz baths, either portable or in the tub, are suggested. A shower with a shower arm sprayed over the episiotomy may be comforting. * Ana Luisa care should be done after each voiding and bowel movement. Squirt warm water from a plastic bottle over the perineum (region of the body between the anus and urinary opening) and pat dry. * Use Dermoplast to ease discomfort. Shake container. [place] directly over the episiotomy. Place a Tucks on a clean sanitary pad next to your episiotomy. SPECIAL CARE INSTRUCTIONS: When you are discharged from the hospital, it is important for you to follow the instructions listed below: * During the first week at home, you should be able to care for yourself and your baby. In addition, the usual light household activities are encouraged. * Limit your activities to the way you feel. Do not try to clean the house or move furniture. Be sensible. * If you actively engage in sports and have done so up until the time of your delivery, you may resume these activities as soon as you feel able. This may take up to one month or even longer. Use good judgment. * Continue to take your vitamins for at least six weeks after the of your baby. * Your diet need not be limited unless you were on a special diet before your delivery. Breast-feeding mothers need around 2500 calories per day and at least 64-80 ounces of fluid per day (8 to 10 glasses). * You should eat foods from the four major food groups. Crash diets or fad diets are to be avoided. Eating lean meats, fresh fruits and vegetables, low-fat dairy products, high fiber foods and a regular exercise program, will help you get back to your pre- weight without putting your health at risk. * Constipation is sometimes a problem after delivery. Take a mild laxative as needed. If breast feeding, Milk of Magnesia is acceptable to use. You may use a suppository or Fleets enema if no episiotomy. * A daily shower or tub bath is suggested. Be sure to thoroughly and gently dry the perineum. * A bloody vaginal discharge will usually continue until around four weeks post . A small amount of bleeding may continue for as long as six weeks. Vaginal discharge changes from the bright red bleeding after delivery to pink then brownish and finally yellowish-pink before becoming white and disappearing. * Bleeding may increase with activity. Your first period may come in 4-8 weeks. If you are breast feeding, your period may be delayed even longer. * [place] (sex) can begin whenever both you and your partner feel comfortable and do not have any form of genital infection. It is recommended that you wait at least six weeks for internal and external healing to occur. If you have questions, please talk to your health care practitioner. A condom should be used to prevent infection and . * Foreplay, gentle intercourse and lubrication is very important the first several times to prevent pain. A water-based lubricant such as K-Y jelly or Astroglide may be used. * If you have RH negative blood and your baby is RH positive, you will receive RHOGAM by injection prior to discharge. The nurse will give you a card to keep with you that has the date and place that you received RHOGAM after delivery. * During your care, you had a Rubella screen done to check for the presence of rubella antibodies in your blood. If your test was negative, you will receive a Rubella vaccine prior to discharge. This vaccine may cause a fever, soreness at the injection site and flu-like symptoms. If these symptoms persist, notify your health care practitioner. is not advised for one month after a Rubella vaccine. * Verbalizes understanding of car seat law as reviewed with patient nursing. * Car Seat hand-out given and reviewed with patient by nursing. * Shaken baby information reviewed with patient by nursing. Call you doctor if: * Heavy bleeding (saturating several pads an hour) or passing clots the size of your fist. * A fever >101 degrees F (38.3 degrees C) on two occasions four hours apart and /or chills. * Unusual pain in the pelvic or vaginal areas. * "Baby Blues" lasting longer than two weeks. If you have any questions or concerns, call your health care practitioner at . FOLLOW UP VISIT: * Please call the office at to schedule a 6 week examination. It is important you keep this appointment. It is important for you to make arrangements for either yearly or twice yearly check-ups thereafter. Current Hospital Diet Patient's current hospital diet: Regular OB Diet Discharge Diet Recommended Diet: Regular Diet Pending Studies Studies pending at discharge: no Medical Emergencies . Who to Call and When: Medical Emergencies: If at any time you feel your situation is an emergency, please call 911 immediately. . Non-Emergent Contact Non-Emergency issues call your: Primary Care Provider . . "Provider Documentation" section prepared by Angeline Connelly. . VTE Core Measure Inpt VTE Proph given/why not?: Treatment not indicated
[2016-11-02] MEDS: NICOTINE 21 MG/24 HR TDSY TD SCH (08:19)
[2016-11-02] MEDS: PRENATAL VITAMIN TAB PO SCH (08:24)
[2016-11-02] MEDS: BUPRENORPHINE HCL 8 MG SUBL SL SCH ×2 (08:24→20:00)
[2016-11-02] MEDS: FERROUS SULFATE 325 MG TAB PO SCH (08:24)
[2016-11-02] MEDS: IBUPROFEN 600 MG TAB PO PRN ×2 (08:26→14:46)
[2016-11-02 09:00] VITALS: BP 136/87; PULSE 79; TEMP 36.5
[2016-11-02] MEDS: ACETAMINOPHEN 325 MG TAB PO PRN (14:47)
[2016-11-02 15:22] VITALS: BP 136/72; PULSE 85; TEMP 36.4
[2016-11-02] MEDS ORDERED: BISACODYL 5 MG TABEC PO SCH (20:00)
[2016-11-02 23:50] VITALS: BP 123/80; PULSE 87; TEMP 36.6
--- NOTE | 2016-11-03 07:47 | OB/GYN Progress Note ---
TILE GRADER Progress Note Date of Service Nov 03, 2016. Subjective conversation w/ patient, physical exam, chart review, lab review Ambulation: ambulating normally Voiding: no voiding problems Passing Gas: Yes Diet Tolerance: Regular Diet Lochia: Moderate Feeding Type: Bottle Feeding Pain: CONTROLLED Review of Systems Respiratory: No shortness of breath Cardiac: No chest pain Abdomen: No nausea, No vomiting Female : No dysuria Objective Vital Signs Date Time Temp Pulse Resp B/P (MAP) Pulse Ox O2 Delivery O2 Flow Rate FiO2 11/02/16 23:50 36.6 87 18 123/80 11/02/16 23:50 Room Air 11/02/16 15:22 Room Air 11/02/16 15:22 36.4 85 16 136/72 11/02/16 09:00 36.5 79 22 136/87 Physical Exam General Appearance: WELL-APPEARING, WD/WN, NO APPARENT DISTRESS Respiratory/Chest: lungs clear, no respiratory distress Cardiovascular: regular rate, rhythm Abdomen: normal bowel sounds, soft Fundus: Firm, Tender (APPROPRIATELY TENDER), Relation to Umbilicus (3 BELOW U) Extremities: non-tender Assessment and Plan Post- Day Number: 2 Continue Routine Care: - Vital Signs reviewed and WNL. - Blood Type: O+, GBS-, Rubella Immune. . - Pt is doing well clinically. - Encourage Ambulation, Monitor and Control pain with Motrin PRN, Resume regular diet, Monitor Lochia - Pt counselled on discharge instructions - will nest today. Baby will be DC tomorrow due to following due to subutex use during . WAGNER CONNELLY PGY1 FMR Resident Physician Supervision Note: I interviewed and examined the patient. Discussed with Dr. Connelly and agree with findings and plan as documented in the note. Any exceptions or clarifications are listed here: Doing well. Plan d/c to rooming in . Documented By: Libby Garcia Resident Tracking Resident Involvement: Resident Care Provided Care Provided: OB Delivery
[2016-11-03] MEDS: PRENATAL VITAMIN TAB PO SCH (07:55)
[2016-11-03] MEDS: BUPRENORPHINE HCL 8 MG SUBL SL SCH (07:55)
[2016-11-03] MEDS: FERROUS SULFATE 325 MG TAB PO SCH (07:55)
[2016-11-03] MEDS: NICOTINE 21 MG/24 HR TDSY TD SCH (07:56)
[2016-11-03 08:00] VITALS: BP 112/69; PULSE 80; TEMP 36.6
[2016-11-03] MEDS ORDERED: COUGH DROP (SUGAR FREE) LOZ 24 LOZ/1 BOX ONE (15:20)
[2016-11-03 16:05] VITALS: BP_DIAS 69; PULSE 80; TEMP 36.6
[2016-11-03 16:15] VITALS: BP 125/81; PULSE 73; TEMP 36.5
== END 2016-11-03 17:45 | disposition home or self-care (01) | DRG 775 ==
LOC: C.LD 00:50 → C.OPB 00:50 → C.LD 01:00 → C.OBG 04:15
PROVIDERS: ADMIT Obstetrics & Gynecology; ATTEND Obstetrics & Gynecology
PROC: 10E0XZZ Delivery of Products of Conception, External Approach (ICD-10-PCS; principal; 2016-11-01)
DX: O48.0 Post-term pregnancy (principal); N13.30 Unspecified hydronephrosis; O99.89 Other specified diseases and conditions complicating pregnancy, childbirth and the puerperium; O23.43 Unspecified infection of urinary tract in pregnancy, third trimester; O69.89X0 Labor and delivery complicated by other cord complications, not applicable or unspecified; Z37.0 Single live birth; Z3A.41 41 weeks gestation of pregnancy